=== PATIENT | female | born 1945 | race Hispanic/Latino ===

== ENCOUNTER → 2018-07-05 | Outpatient (CLI) | payer MEDICARE ==
[2018-07-05 14:32] LABS: CREATININE 0.8 mg/dL (0.5-1.5)
== END | disposition home or self-care (01) ==
LOC: LAB 13:51
PROVIDERS: ATTEND Family Medicine
DX: D73.4 Cyst of spleen (principal)
CPT/HCPCS: 36415; 82565; 84520

== ENCOUNTER → 2018-07-06 | Outpatient (CLI) | payer MEDICARE ==
[~2018-07-06] MED LIST: IOHEXOL-350 75 ML VIAL IV ONE
== END | disposition home or self-care (01) ==
LOC: RAH 07:34
PROVIDERS: ATTEND Family Medicine
DX: D73.4 Cyst of spleen (principal); M51.35 Other intervertebral disc degeneration, thoracolumbar region; M41.85 Other forms of scoliosis, thoracolumbar region
CPT/HCPCS: 74170; Q9967

== ENCOUNTER → 2019-02-21 | Outpatient (CLI) | payer MEDICARE | END | disposition home or self-care (01) | LOC: RAH 14:53 | PROVIDERS: ATTEND Family Medicine | DX: Z12.31 Encounter for screening mammogram for malignant neoplasm of breast (principal) | CPT/HCPCS: 77067 ==